=== PATIENT | female | born 1950 | race Caucasian/White ===

== ENCOUNTER 2016-11-08 10:22 | Emergency (ER) | payer OTHER ==
[~2016-11-08 10:22] MED LIST: ASPIRIN ADULT L81 M1 PO; ATENOLOL50 M1 PO; CITALOPRAM HYDR20 MG PO; Ciprofloxacin500 MG PO; FLAGYL500 MG PO; FUROSEMIDE40 MG PO; GABAPENTIN100 M2 PO; JANUMET 1000 MG1 TA1 PO; LISINOPRIL AND1 TA2 PO; LORAZEPAM0.5 MG PO; NEURONTIN100 MG PO; SPIRIVA18 MCG PO; SYMBICORT1 AE1 INH; VENTOLIN H0.09 MG/AC INH; VITAMIN D-32000 UNI1 PO
[2016-11-08] MEDS ORDERED: LANTUS100 U/ML SC (10:28)
[2016-11-08] MEDS ORDERED: PREDNISONE20 M1 PO (10:49)
== END 2016-11-08 10:58 | disposition home or self-care (01) ==
LOC: ED 10:22
DX: L24.7 Irritant contact dermatitis due to plants, except food (principal); E11.9 Type 2 diabetes mellitus without complications; F17.200 Nicotine dependence, unspecified, uncomplicated; Z88.6 Allergy status to analgesic agent; Z79.899 Other long term (current) drug therapy; Z79.82 Long term (current) use of aspirin

== ENCOUNTER → 2017-01-20 | Day surgery (SDC) | payer OTHER ==
[~2017-01-20] VITALS: Ht 167.6 cm; Wt 78.0 kg
[~2017-01-20] MED LIST changes: +LANTUS100 U/ML SC; +PREDNISONE20 M1 PO
--- NOTE | ~2017-01-20 | O ---
[place], [place] OPERATIVE NOTE NAME: CONCHA ENCISO [facility] #: [id number] UNIT #: [id number] ROOM: DOCTOR: SANDY VIDES MD BIRTHDATE: [birth year] DOS: 01/20/2017 PREOPERATIVE DIAGNOSIS: Cataract, left eye. POSTOPERATIVE DIAGNOSIS: Cataract, left eye. OPERATION: Extracapsular cataract extraction by phacoemulsification with posterior chamber intraocular lens implantation, left eye. ANESTHESIA: Monitored standby. OPERATIVE FINDINGS AND PROCEDURE: 2% Xylocaine topical anesthetic gel was applied to the eye in the preop area. The patient was taken to the operating room and prepped and draped in the standard fashion for sterile intraocular surgery. A time out procedure was performed verifying correct patient, correct site and corrects lens with Blake Vides M.D. The operating microscope was swung into position and the lid speculum was inserted. Using a Emy paracentesis blade, a paracentesis was made through clear cornea. Viscoelastic was used to fill the anterior chamber. Using a metal keratome a 2.4 mm self-sealing clear corneal cataract incision was made temporally at the limbus. Using a pre-bent 25 gauge cystotome needle, a standard continuous curvilinear capsulorrhexis was performed. The anterior capsule was removed with forceps. The lens nucleus was hydrodissected and phacoemulsified in the posterior chamber. Cortical material was removed with the irrigation aspiration hand piece and the posterior capsule was then polished with a curet under irrigation. The posterior chamber and capsular bag were filled with viscoelastic. A posterior chamber intraocular lens manufactured by: [employer], Model #[id number], and 25.5 diopters in strength were then inserted into the posterior chamber and within the capsular bag using the lens cartridge and injector system. Viscoelastic was removed using the irrigation aspiration handpiece. The anterior chamber was filled with balanced salt solution through the paracentesis. Both the paracentesis site and cataract incisions were hydrated with BSS and verified to be water-tight and self-sealing. Cefuroxime 1 mg/1 mL was injected into the anterior chamber through the paracentesis site. The incision checked to be water-tight using a Weck-Mariel sponge. The integrity of the cataract wound and ocular tension were checked. Lid speculum and drapes were removed. The patient was transferred from the operating room to the recovery room in satisfactory condition. [place], [place] OPERATIVE NOTE NAME: CONCHA ENCISO UNIT #: [id number] ROOM: DOCTOR: SANDY VIDES MD BIRTHDATE: [birth year] SANDY VIDES MD CM:OPRECORD:OPERATIVE NOTE [id number] SANDY VIDES MD 01/20/17 1356 interface
[2017-01-20 09:41] VITALS: BP 134/69
[2017-01-20 10:40] VITALS: BP 122/47
[2017-01-20 10:55] VITALS: BP 132/55
[2017-01-20 11:06] VITALS: BP 136/63
== END | disposition home or self-care (01) ==
LOC: SDC 01-15 10:15
DX: E11.36 Type 2 diabetes mellitus with diabetic cataract (principal); M06.9 Rheumatoid arthritis, unspecified; I10 Essential (primary) hypertension; E11.40 Type 2 diabetes mellitus with diabetic neuropathy, unspecified; E78.00 Pure hypercholesterolemia, unspecified; Z90.710 Acquired absence of both cervix and uterus; Z90.49 Acquired absence of other specified parts of digestive tract; Z98.890 Other specified postprocedural states; Z83.3 Family history of diabetes mellitus; Z82.49 Family history of ischemic heart disease and other diseases of the circulatory system; F17.210 Nicotine dependence, cigarettes, uncomplicated; Z88.8 Allergy status to other drugs, medicaments and biological substances

== ENCOUNTER → 2017-02-24 | Day surgery (SDC) | payer OTHER ==
[~2017-02-24] VITALS: Ht 167.6 cm; Wt 78.0 kg
[~2017-02-24] MED LIST changes: +LANTUS SOL100 UNIT/1 SC; -LANTUS100 U/ML SC
--- NOTE | ~2017-02-24 | O ---
[place], [place] OPERATIVE NOTE NAME: CONCHA ENCISO [facility] #: [id number] UNIT #: [id number] ROOM: DOCTOR: SANDY VIDES MD BIRTHDATE: [birth year] DOS: 02/24/2017 PREOPERATIVE DIAGNOSIS: Cataract, right eye. POSTOPERATIVE DIAGNOSIS: Cataract, right eye. OPERATION: Extracapsular cataract extraction by phacoemulsification with posterior chamber intraocular lens implantation, right eye. ANESTHESIA: Monitored standby. OPERATIVE FINDINGS AND PROCEDURE: 2% Xylocaine topical anesthetic gel was applied to the eye in the preop area. The patient was taken to the operating room and prepped and draped in the standard fashion for sterile intraocular surgery. A time out procedure was performed verifying correct patient, correct site and corrects lens with Blake Vides M.D. The operating microscope was swung into position and the lid speculum was inserted. Using a Emy paracentesis blade, a paracentesis was made through clear cornea. Viscoelastic was used to fill the anterior chamber. Using a metal keratome a 2.4 mm self-sealing clear corneal cataract incision was made temporally at the limbus. Using a pre-bent 25 gauge cystotome needle, a standard continuous curvilinear capsulorrhexis was performed. The anterior capsule was removed with forceps. The lens nucleus was hydrodissected and phacoemulsified in the posterior chamber. Cortical material was removed with the irrigation aspiration hand piece and the posterior capsule was then polished with a curet under irrigation. The posterior chamber and capsular bag were filled with viscoelastic. A posterior chamber intraocular lens manufactured by: [employer], Model #[id number], and 25.0 diopters in strength were then inserted into the posterior chamber and within the capsular bag using the lens cartridge and injector system. Viscoelastic was removed using the irrigation aspiration handpiece. The anterior chamber was filled with balanced salt solution through the paracentesis. Both the paracentesis site and cataract incisions were hydrated with BSS and verified to be water-tight and self-sealing. Cefuroxime 1 mg/0.1 mL was injected into the anterior chamber through the paracentesis site. The incision checked to be water-tight using a Weck-Mariel sponge. The integrity of the cataract wound and ocular tension were checked. Lid speculum and drapes were removed. The patient was transferred from the operating room to the recovery room in satisfactory condition. [place], [place] OPERATIVE NOTE NAME: CONCHA ENCISO UNIT #: [id number] ROOM: DOCTOR: MAHOGANY CAPELLAN,SANDY BIRTHDATE: [birth year] SANDY VIDES MD CM:OPRECORD:OPERATIVE NOTE [id number] SANDY VIDES MD 02/24/17 1101 interface
[2017-02-24 10:00] VITALS: BP 113/55
[2017-02-24 10:15] VITALS: BP 128/55
[2017-02-24 10:30] VITALS: BP 126/56
== END | disposition home or self-care (01) ==
LOC: SDC 02-19 10:15
DX: E11.36 Type 2 diabetes mellitus with diabetic cataract (principal); I10 Essential (primary) hypertension; M06.9 Rheumatoid arthritis, unspecified; E78.00 Pure hypercholesterolemia, unspecified; Z83.3 Family history of diabetes mellitus; Z82.49 Family history of ischemic heart disease and other diseases of the circulatory system; F17.210 Nicotine dependence, cigarettes, uncomplicated; Z90.710 Acquired absence of both cervix and uterus

== ENCOUNTER → 2021-11-03 | Outpatient (CLI) | payer OTHER | END | disposition home or self-care (01) | LOC: RAD 05:10 | PROVIDERS: ATTEND Internal Medicine | DX: Z13.820 Encounter for screening for osteoporosis (principal); Z78.0 Asymptomatic menopausal state ==

== ENCOUNTER → 2022-12-09 | Outpatient (CLI) | payer OTHER ==
[~2022-12-09] MED LIST changes: +ATORVASTATIN CA40 M1 PO; +CITALOPRAM20 MG PO; +JARDIANCE25 MG PO
== END | disposition home or self-care (01) ==
LOC: CARD 01:24
PROVIDERS: ATTEND Internal Medicine
DX: R94.31 Abnormal electrocardiogram [ECG] [EKG] (principal); I25.10 Atherosclerotic heart disease of native coronary artery without angina pectoris; R06.02 Shortness of breath; R06.09 Other forms of dyspnea

== ENCOUNTER 2023-07-18 01:58 | Inpatient (IN) | payer OTHER ==
[~2023-07-18] VITALS: Ht 167.6 cm; Wt 80.3 kg
[~2023-07-18 01:58] MED LIST changes: +ACTOS30 M1 PO; +METRONIDAZOLE500 M1 PO; -NEURONTIN100 MG PO; +NEURONTIN300 MG PO; +NICODERM CQ1 EAC2 T; +TENORMIN25 MG PO; +TRELEGY ELLIPT1 EAC1 INH
[2023-07-18] MEDS ORDERED: SODIUM CHLORIDE 0.9% 1,000 ML IV ONE ×4 (02:15→07:10)
[2023-07-18] MEDS ORDERED: INSULIN REGULAR, HUMAN 1 UNIT/0.01 ML IV ONE ×5 (02:15→07:10)
[2023-07-18 02:48] LABS: BASO # 0.1 10*3/uL (0.0-0.1); BASO % 0.4 % (0.0-1.0); EOS # 0.2 10*3/uL (0.0-0.4); EOS % 1.9 % (1.0-4.0); HEMATOCRIT 43.2 % (37.0-47.0); LYMPH # 1.2 10*3/uL (1.3-4.4); LYMPH % 9.1 % (27.0-41.0); MEAN CORPUSCULAR HGB 30.6 pg (27.0-31.0); MONO # 0.8 10*3/uL (0.1-1.0); MONO % 6.2 % (3.0-9.0); NEUT # 10.4 10*3/uL (2.3-7.9); NEUT % 81.9 % (47.0-73.0); PLATELET COUNT AUTOMATED 236 10*3/uL (130-400); RED CELL DISTRI WIDTH 12.4 % (0-14.5); WHITE BLOOD COUNT 12.7 10*3/uL (4.8-10.8)
[2023-07-18] MEDS ORDERED: Ondansetron Hydrochloride 4 MG/2 ML VIAL IV ONE (02:50)
[2023-07-18 03:28] LABS: POTASSIUM 5.1 mmol/L (3.4-5.1)
[2023-07-18 05:00] VITALS: BP 148/86
[2023-07-18 10:06] VITALS: BP 138/64
[2023-07-18 10:29] LABS: POTASSIUM 4.9 mmol/L (3.4-5.1)
[2023-07-18 12:20] VITALS: BP 101/51
[2023-07-18] MEDS ORDERED: BUDESONIDE 0.5 MG AMP NEB SCH (12:35)
[2023-07-18] MEDS ORDERED: Albuterol Sulfate 2.5 MG/3 ML VIAL NEB SCH (12:35)
[2023-07-18] MEDS ORDERED: Nicotine 21 MG PATCH T SCH (13:00)
[2023-07-18] MEDS ORDERED: GABAPENTIN 100 MG CAP PO SCH (14:00)
[2023-07-18] MEDS ORDERED: DEXTROSE 10 % IN WATER 250 ML DEHP.FR.BG IV PRN (14:10)
[2023-07-18] MEDS ORDERED: SODIUM CHLORIDE 0.9% 1,000 ML IV SCH (15:05)
[2023-07-18 16:00] VITALS: BP 117/43
[2023-07-18] MEDS ORDERED: Piperacillin Sodium/Tazobact 50 ML IV SCH (16:00)
[2023-07-18] MEDS ORDERED: INSULIN REGULAR, HUMAN 1 UNIT/0.01 ML SC SCH (16:30)
[2023-07-18 16:34] LABS: BUN 22 mg/dl (9-23); CHLORIDE 99 mmol/L (98-107); POTASSIUM 4.5 mmol/L (3.4-5.1)
[2023-07-18] MEDS ORDERED: ATORVASTATIN CALCIUM 40 MG TABLET PO SCH (18:00)
[2023-07-18] MEDS ORDERED: VANCOMYCIN/WATER FOR INJ (PEG) 300 ML IV SCH (18:00)
[2023-07-18 20:00] VITALS: BP 125/52
[2023-07-18] MEDS ORDERED: ATENOLOL 25 MG TAB PO SCH (22:00)
[2023-07-18] MEDS ORDERED: Fluticasone Propionate/Salmeterol 250/50 diskus INH SCH (22:00)
[2023-07-18] MEDS ORDERED: Insulin Glargine, Recombinan 1 UNIT/0.01 ML SC SCH (22:00)
[2023-07-18] MEDS ORDERED: GABAPENTIN 300 MG CAP PO SCH (22:00)
[2023-07-19] VITALS: BP 99/51
[2023-07-19 06:24] LABS: BASO # 0.1 10*3/uL (0.0-0.1); BASO % 0.5 % (0.0-1.0); EOS # 0.4 10*3/uL (0.0-0.4); EOS % 4.2 % (1.0-4.0); HEMATOCRIT 40.4 % (37.0-47.0); LYMPH # 2.3 10*3/uL (1.3-4.4); LYMPH % 22.3 % (27.0-41.0); MEAN CORPUSCULAR HGB 30.7 pg (27.0-31.0); MEAN CORPUSCULAR HGB CONC 32.7 g/dl (33.0-37.0); MEAN PLATELET VOLUME 12.2 fl (9.6-12.3); MONO # 0.7 10*3/uL (0.1-1.0); NEUT # 6.9 10*3/uL (2.3-7.9); NEUT % 65.6 % (47.0-73.0); PLATELET COUNT AUTOMATED 219 10*3/uL (130-400); RED CELL DISTRI WIDTH 12.8 % (0-14.5); WHITE BLOOD COUNT 10.4 10*3/uL (4.8-10.8)
[2023-07-19 06:39] LABS: ALKALINE PHOSPHATASE 78 U/L (46-116); BUN 17 mg/dl (9-23); CHLORIDE 101 mmol/L (98-107); POTASSIUM 4.3 mmol/L (3.4-5.1); TOTAL PROTEIN 6.1 gm/dL (6.0-8.0)
[2023-07-19 06:48] LABS: SGPT/ALT < 7 U/L (5-49)
[2023-07-19 08:00] VITALS: BP 120/53
[2023-07-19] MEDS ORDERED: CITALOPRAM 20 MG TAB PO SCH (10:00)
[2023-07-19] MEDS ORDERED: Enoxaparin Sodium 40 MG/0.4 ML SYR SC SCH (10:00)
[2023-07-19] MEDS ORDERED: LISINOPRIL 20 MG TAB PO SCH (10:00)
[2023-07-19 11:52] VITALS: BP 115/67
[2023-07-19] MEDS ORDERED: GADOTERATE MEGLUMINE 10 MMOL/20 ML VIAL IV ONE (11:54)
[2023-07-19 16:00] VITALS: BP 131/76
[2023-07-19 20:00] VITALS: BP 130/50
[2023-07-19] MEDS ORDERED: Ketorolac Tromethamine 15 MG/ML VIAL IV ONE (22:35)
[2023-07-19] MEDS ORDERED: AUGMENTIN 500500 M1 PO (23:58)
[2023-07-19] MEDS ORDERED: DALVANCE500 MG IV (23:58)
[2023-07-20] VITALS: BP 108/60
[2023-07-20 06:27] LABS: BASO % 0.5 % (0.0-1.0); EOS # 0.4 10*3/uL (0.0-0.4); EOS % 5.5 % (1.0-4.0); HEMATOCRIT 39.6 % (37.0-47.0); LYMPH # 2.4 10*3/uL (1.3-4.4); MEAN CORPUSCULAR HGB 30.2 pg (27.0-31.0); MEAN CORPUSCULAR HGB CONC 31.8 g/dl (33.0-37.0); MEAN PLATELET VOLUME 11.4 fl (9.6-12.3); MONO # 0.6 10*3/uL (0.1-1.0); MONO % 7.9 % (3.0-9.0); NEUT % 53.6 % (47.0-73.0); PLATELET COUNT AUTOMATED 198 10*3/uL (130-400); RED BLOOD COUNT 4.17 10*6/uL (4.10-5.10); RED CELL DISTRI WIDTH 12.8 % (0-14.5); WHITE BLOOD COUNT 7.5 10*3/uL (4.8-10.8)
[2023-07-20 06:39] LABS: ALKALINE PHOSPHATASE 71 U/L (46-116); BUN 14 mg/dl (9-23); CHLORIDE 104 mmol/L (98-107); POTASSIUM 3.9 mmol/L (3.4-5.1); SGPT/ALT < 7 U/L (5-49); TOTAL PROTEIN 5.6 gm/dL (6.0-8.0)
[2023-07-20 08:00] VITALS: BP 129/60
[2023-07-20 12:00] VITALS: BP 147/56
[2023-07-20] MEDS ORDERED: IOHEXOL 350 MG/ML 100 ML VIAL IV ONE (12:30)
[2023-07-20] MEDS ORDERED: SODIUM CHLORIDE 0.9% 100 ML BAG IV ONE (12:30)
[2023-07-20 16:00] VITALS: BP 138/46
[2023-07-20 20:00] VITALS: BP 120/34
[2023-07-21] VITALS: BP 110/51
[2023-07-21 07:35] LABS: BASO % 0.3 % (0.0-1.0); EOS # 0.4 10*3/uL (0.0-0.4); EOS % 4.4 % (1.0-4.0); HEMATOCRIT 41.9 % (37.0-47.0); LYMPH # 2.5 10*3/uL (1.3-4.4); LYMPH % 25.7 % (27.0-41.0); MEAN CELL VOLUME 96.3 fl (81.0-99.0); MEAN CORPUSCULAR HGB 30.6 pg (27.0-31.0); MEAN CORPUSCULAR HGB CONC 31.7 g/dl (33.0-37.0); MEAN PLATELET VOLUME 11.8 fl (9.6-12.3); MONO # 0.7 10*3/uL (0.1-1.0); MONO % 6.9 % (3.0-9.0); NEUT # 6.1 10*3/uL (2.3-7.9); NEUT % 62.4 % (47.0-73.0); PLATELET COUNT AUTOMATED 237 10*3/uL (130-400); RED BLOOD COUNT 4.35 10*6/uL (4.10-5.10); WHITE BLOOD COUNT 9.7 10*3/uL (4.8-10.8)
[2023-07-21 08:00] VITALS: BP 134/56
[2023-07-21 08:00] LABS: ALKALINE PHOSPHATASE 69 U/L (46-116); BUN 7 mg/dl (9-23); CHLORIDE 107 mmol/L (98-107); POTASSIUM 3.8 mmol/L (3.4-5.1); TOTAL PROTEIN 6.1 gm/dL (6.0-8.0)
[2023-07-21 08:09] LABS: SGPT/ALT < 7 U/L (5-49)
[2023-07-21 16:00] VITALS: BP 175/63
[2023-07-21] MEDS ORDERED: LANTUS SOL100 UNIT/1 SC (17:01)
[2023-07-21 20:00] VITALS: BP 154/61
[2023-07-22] VITALS: BP 137/43
[2023-07-22 08:00] VITALS: BP 154/52
== END 2023-07-22 11:30 | disposition home or self-care (01) | DRG 638 ==
LOC: ED 01:58 → 4E 09:57 → EDHOLD 09:57 → 5E 10:45 → EDHOLD 11:12 → 4E 11:15
PROVIDERS: Internal Medicine; ADMIT Internal Medicine; ATTEND Internal Medicine
DX: E11.00 Type 2 diabetes mellitus with hyperosmolarity without nonketotic hyperglycemic-hyperosmolar coma (NKHHC) (principal); E87.1 Hypo-osmolality and hyponatremia; L03.116 Cellulitis of left lower limb; E11.628 Type 2 diabetes mellitus with other skin complications; I50.9 Heart failure, unspecified; E11.51 Type 2 diabetes mellitus with diabetic peripheral angiopathy without gangrene; F17.210 Nicotine dependence, cigarettes, uncomplicated; E11.65 Type 2 diabetes mellitus with hyperglycemia; K76.0 Fatty (change of) liver, not elsewhere classified; Z88.5 Allergy status to narcotic agent; Z79.4 Long term (current) use of insulin; Z79.899 Other long term (current) drug therapy

== ENCOUNTER → 2024-11-20 | Outpatient (CLI) | payer OTHER ==
[~2024-11-20] MED LIST changes: +AUGMENTIN 500500 M1 PO; +DALVANCE500 MG IV
== END | disposition home or self-care (01) ==
LOC: CARD 10:26
PROVIDERS: ATTEND Internal Medicine
DX: R55 Syncope and collapse (principal)